=== PATIENT | male | born 1985 | race Caucasian/White ===

== ENCOUNTER 2021-07-07 20:53 | Emergency (ER) | payer OTHER | END 2021-07-07 21:23 | disposition home or self-care (01) | LOC: FER 20:53 | DX: S60.222A Contusion of left hand, initial encounter (principal); I10 Essential (primary) hypertension; Z79.899 Other long term (current) drug therapy; Z28.310 Unvaccinated for COVID-19 | CPT/HCPCS: 73130 ==